=== PATIENT | female | born 1955 ===

== ENCOUNTER 2018-05-15 17:24 | Inpatient (IN) ==
[2018-05-15] MEDS ORDERED: MORPHINE SULFATE 4 MG/1 ML IVP ONE (17:45)
[2018-05-15] MEDS ORDERED: Sodium Chloride 0.9% 1,000 ML PRIMARY IV ONE (17:45)
[2018-05-15] MEDS ORDERED: ONDANSETRON 4 MG/2 ML VIAL IVP ONE (17:45)
[2018-05-15 18:26] LABS: BASOPHILS # (AUTO) 0.04 10*3/UL; BASOPHILS % (AUTO) 0.2 % (0-1); EOSINOPHILS % (AUTO) 0.5 % (0-8); Hematocrit [HCT] 40.4 % (37.0-47.0); Hemoglobin [HGB] 13.6 g/dL (12.0-16.0); LYMPHOCYTES # (AUTO) 2.16 10*3/uL; MEAN CORPUSCULAR HEMOGLOBIN 30.7 PG (27-31); MEAN CORPUSCULAR HGB CONC 33.7 g/dL (33-37); MEAN CORPUSCULAR VOLUME 91.2 FL (81-99); MEAN PLATELET VOLUME 9.5 FL (7.4-12.2); MONOCYTES % (AUTO) 4.6 % (5-15); NEUTROPHILS # (AUTO) 16.23 10*3/UL; NEUTROPHILS % (AUTO) 83.4 % (50-80); RED BLOOD COUNT 4.43 10^6/uL (4.20-5.40)
[2018-05-15 18:37] LABS: BLOOD UREA NITROGEN 10 mg/dL (7-22); BUN/CREATININE RATIO 16.66 (6-20); LIPASE 89 IU/L (23-300); SERUM ALBUMIN 4.4 g/dL (3.5-4.8)
[2018-05-15 18:38] LABS: PLATELET MORPHOLOGY COMMENT NORMAL MORPHOLOGY (NORM); RBC MORPHOLOGY COMMENT SEE COMMENTS (NORM); WBC MORPHOLOGY COMMENT NORMAL MORPHOLOGY (NORM)
[2018-05-15 19:39] LABS: BILIRUBIN,URINE NEGATIVE (NEG); CLARITY,URINE Slightly Cloudy (CLEAR); COLOR,URINE YELLOW (Y); GLUCOSE, URINE (UA) NEGATIVE (NEG); OCCULT BLOOD,URINE SMALL (NEG); PH,URINE 7.5 (5.0-8.5); PROTEIN,URINE NEGATIVE (NEG); UROBILINOGEN,URINE 0.2 EU/dL (0.2)
[2018-05-15 19:42] LABS: BACTERIA,URINE FEW; URINE SAMPLE TYPE CLEAN CATCH URINE; WBC,URINE >100
--- NOTE | 2018-05-15 19:47 | DI ---
EXAM: CT Abdomen and Pelvis With Intravenous Contrast CLINICAL HISTORY: Pain TECHNIQUE: Axial computed tomography images of the abdomen and pelvis with intravenous contrast. COMPARISON: CT abdomen and pelvis dated 04/12/2018 FINDINGS: Lung bases: Unremarkable. No mass. No consolidation. ABDOMEN: Liver: Unremarkable. Gallbladder and bile ducts: Unremarkable. Pancreas: Unremarkable. Spleen: Unremarkable. Adrenals: Unremarkable. Kidneys and ureters: Unremarkable. Stomach and bowel: Short segment of the mid transverse colon which demonstrates marked wall thickening and minimal adjacent stranding. PELVIS: Appendix: No findings to suggest acute appendicitis. Bladder: Unremarkable. Reproductive: Unremarkable as visualized. ABDOMEN and PELVIS: Intraperitoneal space: Unremarkable. Bones/joints: Degenerative changes of the osseous structures. No acute fracture. No dislocation. Soft tissues: Tiny fat-containing umbilical hernia. Vasculature: Vascular calcifications. No abdominal aortic aneurysm. Lymph nodes: Unremarkable. Tubes, lines and devices: Tubal occlusion device noted. Other findings: Lower thorax is unremarkable. IMPRESSION: Short segment of the mid transverse colon which demonstrates marked wall thickening and minimal adjacent stranding. Findings may represent an inflammatory or infectious colitis. Neoplasm is not excluded.
--- NOTE | 2018-05-15 20:22 | PDOC ---
HPI - History of Present Illness History of Present Illness: 63 yo female admited with 3 day hx of abd pain,some diarrhea non bloody .She states this happens to her often.this pm it got worse and she came to ER to be seen Past Medical History Medical History: depression,Gerd Tobacco Use: Current Every Day Smoker In the Past 12 Months, Have Used or Abuse Any of the Following Substance: None Medication / Allergies Home Medications: Home Medications Medication Instructions Recorded Confirmed Type clindamycin 1 % lotion See Rx Instructions TOPICAL 02/13/18 05/15/18 Rx .COMPLEX #60 ml lithium carbonate 300 mg tablet 300 mg PO QDAY #30 tab 02/13/18 05/15/18 Rx lithium carbonate ER 450 mg See Rx Instructions PO .COMPLEX 03/17/18 05/15/18 Rx tablet,extended release #30 tab ranitidine 150 mg tablet See Rx Instructions PO .COMPLEX 03/17/18 05/15/18 Rx #60 tab triamcinolone acetonide 0.1 % 1 applic TOPICAL .COMPLEX #60 ml 03/17/18 05/15/18 Rx lotion Fluocinonide/Emollient Base 60 gm TP DAILY 04/12/18 05/15/18 History [Fluocinonide-E 0.05% Cream] alprazolam 0.25 mg tablet 0.25 mg PO BID PRN #60 tab 04/21/18 05/15/18 Rx atorvastatin 40 mg tablet See Rx Instructions PO .COMPLEX 04/21/18 05/15/18 Rx #90 tab dextroamphetamine ER 10 mg 10 mg PO QDAY #30 cap 04/21/18 05/15/18 Rx capsule,extended release diclofenac 1 % topical gel See Rx Instructions TOPICAL 04/21/18 05/15/18 Rx .COMPLEX #100 g docusate sodium 100 mg capsule 100 mg PO QDAY PRN #30 cap 04/21/18 05/15/18 Rx escitalopram 20 mg tablet 20 mg PO QDAY #30 tab 04/21/18 05/15/18 Rx meloxicam 15 mg tablet 15 mg PO QDAY #30 tab 04/21/18 05/15/18 Rx pantoprazole 40 mg tablet,delayed 40 mg PO QDAY #90 tab 04/21/18 05/15/18 Rx release duloxetine 30 mg capsule,delayed 30 mg PO QDAY 05/01/18 05/15/18 History release trazodone 50 mg tablet 50 mg PO QDAY 05/01/18 05/15/18 History hydrocodone 5 mg-acetaminophen 325 1 tab PO Q12H PRN #60 tab 05/07/18 05/15/18 Rx mg tablet Allergies/Adverse Reactions: Allergies Allergy/AdvReac Type Severity Reaction Status Date / Time No Known Allergies Allergy Verified 05/15/18 16:48 Review of Systems - Review of Systems All Systems: Reviewed & No Additional Complaints Except as Stated - Respiratory Respiratory: DENIES: Negative System Review, Cough, Sputum, Dyspnea At Rest, Dyspnea with Exertion, Pleuritic Pain, Hemoptysis, Wheezing, Other, See HPI - Cardiovascular Cardiovascular: DENIES: Negative System Review, Chest Pain, Edema, Syncope, Palpitations, Orthopnea, Paroxysmal Nocturnal Dyspnea, Other, See HPI - Gastrointestinal Gastrointestinal / Abdominal: REPORTS: Nausea, Diarrhea, Abdominal Pain. DENIES: Bloody Stool - Genitourinary Genitourinary: DENIES: Pain, Burning Exam - Vitals Vital Signs: Vital Signs Temperature 97.9 F Temperature Source Temporal Artery Scan Pulse Rate [Pulse Oximeter] 94 Respiratory Rate 20 Blood Pressure [Left Arm] 136/94 Pulse Ox 93 Oxygen Delivery Method Room Air Height 5 ft Weight 190 lb - General General Appearance: No Acute Distress, Cooperative - Head Head Exam: Normal Inspection, Normocephalic, Atraumatic - Eye Eye Exam: POSITIVE: Normal Appearance, PERRL, EOMI, No Scleral Icterus - ENT ENT Exam: POSITIVE: Normal Exam, Mucous Membranes Moist - Respiratory Respiratory Exam: POSITIVE: Clear to Auscultation - Bilaterally, Breathing Non Labored, Normal To Percussion, Normal to Percussion and Palpation - Cardiovascular Cardiovascular Exam: POSITIVE: RRR, No Murmur, No Clicks, No Gallops, No Rubs, PMI Non-Displaced - GI/Abdominal GI/Abdominal Exam: POSITIVE: Soft, No Hepatomegaly, No Splenomegaly. NEGATIVE: Non Tender, Guarding, Rebound, Rigid Additional GI/Abdominal Exam Details: diffuse pain mild tranverse abdomen - Extremities Extremities Exam: POSITIVE: No Clubbing Present, No Edema Present Results - Labs CBC and BMP: 05/15/18 18:15 05/15/18 18:15 Assessment and Plan - Patient Problems (1) Colitis Current Visit: Yes Status: Acute Comment: invanz iv ,clear liquids, Dr cabrera consulted by ER agrees to see pt in consult, according to pt her wbc are always elevated and has seen a specialist in [place] for it. who said it was normal Code(s): K52.9 - Noninfective gastroenteritis and colitis, unspecified (2) UTI (urinary tract infection) Current Visit: Yes Status: Acute Code(s): N39.0 - Urinary tract infection, site not specified
[2018-05-15] MEDS ORDERED: DOCUSATE 100 MG CAPSULE PO PRN (20:39)
[2018-05-15] MEDS ORDERED: ALPRAZolam Tab 0.25 MG TABLET PO PRN (20:39)
[2018-05-15] MEDS ORDERED: CALCIUM CARBONATE 500 MG (TUMS) CHEWABLE TABLET PO PRN (20:39)
[2018-05-15] MEDS ORDERED: ONDANSETRON 4 MG/2 ML VIAL IVP PRN (20:39)
[2018-05-15] MEDS ORDERED: LIDOCAINE W/ SODIUM BICARB 0.5 ML SYR SUBD PRN (20:39)
[2018-05-15] MEDS ORDERED: ACETAMINOPHEN 325 MG TABLET PO PRN (20:39)
[2018-05-15] MEDS: Ertapenem Inj 1 GM in Sodium Chloride 0.9% 100 ML IV SCH (21:03)
[2018-05-15] MEDS: Lactated Ringers 1,000 ML PRIMARY IV SCH (21:03)
[2018-05-15] MEDS: HEPARIN 5000 UNIT/1 ML SUBCUT SCH (21:15)
--- NOTE | 2018-05-15 21:18 | PDOC ---
Abdomen/Flank HPI - General Chief Complaint: Abdomen Pain Stated Complaint: abdominal pain- sent from [facility] Date Seen by Provider: 05/15/18 Time Seen by Provider: 17:25 Source: POSITIVE: Patient Exam Limitations: POSITIVE: No limitations Nurse's Notes Reviewed & Considered: Yes - History of Present Illness Initial Comments: The patient is a 63-year-old female. She presents to the emergency room complaining of a 2 day history of upper abdominal discomfort. She states she had 2 loose bowel movements around 2 AM this morning. She's had associated nausea but no vomiting she's had an appendectomy and a bilateral tubal ligation in the past. She initially presented to the clinic, who sent her to the emergency room for evaluation. Patient has a history of bipolar disorder, depression and back pain and anxiety. Body Location Affected: REPORTS: Abdomen Timing: REPORTS: Constant, Getting Worse Duration: >24 hours (2 days) Severity: Moderate Quality: REPORTS: Cramping, "Pain" Abdominal Pain Onset Location: REPORTS: RUQ, LUQ, Epigastric Abdominal Pain Radiation: REPORTS: No radiation Context: REPORTS: None Modifying Factors: improves with: Other (2-3 loose bowel movements around 2 AM this morning) Associated Symptoms: REPORTS: Nausea, Diarrhea (2 or 3 early this morning) Similar Symptoms Previously: No Recent Care Received: REPORTS: Denies Any Prior Injuries Related to Current Complaint?: No - Patient Home Medications Home Medications: Home Medications clindamycin 1 % lotion See Rx Instructions TOPICAL .COMPLEX #60 ml 02/13/18 lithium carbonate 300 mg tablet 300 mg PO QDAY #30 tab 02/13/18 lithium carbonate ER 450 mg tablet,extended release See Rx Instructions PO .COMPLEX #30 tab 03/17/18 ranitidine 150 mg tablet See Rx Instructions PO .COMPLEX #60 tab 03/17/18 triamcinolone acetonide 0.1 % lotion 1 applic TOPICAL .COMPLEX #60 ml 03/17/18 Fluocinonide/Emollient Base [Fluocinonide-E 0.05% Cream] 60 gm TP DAILY 04/12/18 alprazolam 0.25 mg tablet 0.25 mg PO BID PRN #60 tab 04/21/18 atorvastatin 40 mg tablet See Rx Instructions PO .COMPLEX #90 tab 04/21/18 dextroamphetamine ER 10 mg capsule,extended release 10 mg PO QDAY #30 cap 1 06/22/17 diclofenac 1 % topical gel See Rx Instructions TOPICAL .COMPLEX #100 g 04/21/18 docusate sodium 100 mg capsule 100 mg PO QDAY PRN #30 cap 04/21/18 escitalopram 20 mg tablet 20 mg PO QDAY #30 tab 04/21/18 meloxicam 15 mg tablet 15 mg PO QDAY #30 tab 04/21/18 pantoprazole 40 mg tablet,delayed release 40 mg PO QDAY #90 tab 04/21/18 duloxetine 30 mg capsule,delayed release 30 mg PO QDAY 05/01/18 trazodone 50 mg tablet 50 mg PO QDAY 05/01/18 hydrocodone 5 mg-acetaminophen 325 mg tablet 1 tab PO Q12H PRN #60 tab 05/07/18 - Patient Allergies Allergies/Adverse Reactions: Allergies Allergy/AdvReac Type Severity Reaction Status Date / Time No Known Allergies Allergy Verified 05/15/18 16:48 Past Medical History - heen HEENT History: Denies History Cardiovascular History: Hyperlipidemia Respiratory History: Denies History Gastrointestinal History: GERD, Other (please comment) Additional Gastrointestinal History: Gastritus Genitourinary History: Denies History Endocrine History: Denies History Musculoskeletal History: Back Pain Neurological History: Denies History Blood Disorders: Denies History Additional Blood Disorders History: Hypercholesterolemia Psychiatric History: Depression, Bi Polar Disorder, Anxiety Disorders, ADD History of Sexually Transmitted Diseases: No Female Reproductive History: Tubal Ligation Obstetrical History: Denies History Cancer History: Denies History In Past Year Been Physically Harmed or Verbally Threatened: No History of MDRO: No Tobacco Use: Current Every Day Smoker Type of alcohol normally used: Hard Liquor In the Past 12 Months, Have Used or Abuse Any Substance: None Previous Surgical History: No Significant Family History: No pertinent family hx Past Medical History Reviewed: Reviewed - No Changes ROS - Limitations ROS Limitations: No Limitations Constitution: REPORTS: Denies Symptoms Cardiovascular: REPORTS: Denies Cardiac Symptoms Respiratory: REPORTS: Denies Resp Symptoms Neurological: REPORTS: Denies Neuro Symptoms Gastrointestinal: REPORTS: Abdominal Pain, Nausea, Diarrhea Endocrine: REPORTS: Denies Symptoms Musculoskeletal: REPORTS: Denies MS Symptoms Genitourinary: REPORTS: Denies Symptoms Eyes: REPORTS: Denies Symptoms ENT: REPORTS: Denies Symptoms Skin: REPORTS: Denies Skin Symptoms Lympathic: REPORTS: Denies Lympathic Symptoms Immunologic: POSITIVE: Denies Symptoms Psychiatric: POSITIVE: Denies Psych Symptoms Abdominal/Flank Pain PE - General Appearance General Appearance: POSITIVE: Alert, Cooperative, No Acute Distress, No Evidence of Trauma - HEENT HEENT: POSITIVE: Head Inspection Nml, Eyes Inspection Nml, Ears Inspection Nml, Nose Inspection Nml, Oral/Dental Inspect. Nml, Pharynx Inspect. Nml, PERRL, EOMI - Neck Neck: POSITIVE: Normal Inspection, No Apparent Injury - Respiratory Respiratory: POSITIVE: No Respiratory Distress, Breath Sounds Normal, Chest Non- Tender - Cardiovascular Cardiovascular: POSITIVE: Regular Rate and Rhythm, Heart Sounds Normal, Equal P ulses, Strong Pulses Peripheral Pulses: Radial (R): 2+, Radial (L): 2+ - Chest Chest: POSITIVE: Non Tender - Abdomen Abdomen: Soft: (All Quadrants), Denies Tenderness: (RLQ), (LLQ), No Splenomegaly : (All Quadrants), No Hepatomegaly: (All Quadrants), No Guarding: (All Quadrants), No Rebound: (All Quadrants), No Palpable Pulse: (All Quadrants), No Palpabale Mass: (All Quadrants), No Distention: (All Quadrants), No Rigidity: (All Quadrants), Tenderness Noted: (RUQ), (LUQ) Additional Abdominal Details: Abdominal examination shows bowel sounds the present. Probably somewhat depressed. Patient complains of pain on palpation over the upper abdomen, especially just left of the epigastrium. No masses, organomegaly or rebound. 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 Findings may represent an inflammatory or infectious colitis. Neoplasm not excluded ". Lab Results Reviewed by Me: Yes CBC and BMP: 05/15/18 18:15 05/15/18 18:15 Lab Results:: Laboratory Results 05/15/18 05/15/18 05/15/18 18:15 18:15 19:30 WBC 19.47 H RBC 4.43 Hgb 13.6 Hct 40.4 MCV 91.2 MCH 30.7 MCHC 33.7 RDW Std Deviation 45.5 RDW Coeff of Bobby 13.9 Plt Count 312 MPV 9.5 Immature Gran % (Auto) 0.2 Neut % (Auto) 83.4 H Lymph % (Auto) 11.1 [place] % (Auto) 4.6 L Eos % (Auto) 0.5 Baso % (Auto) 0.2 Immature Gran # (Auto) 0.04 Neut # (Auto) 16.23 Lymph # (Auto) 2.16 [place] # (Auto) 0.90 H Eos # (Auto) 0.10 Baso # (Auto) 0.04 WBC Morphology Comment Normal morphology Plt Morphology Comment Normal morphology RBC Morph Comment See comments Sodium 138 Potassium 4.3 Chloride 104 Carbon Dioxide 26 Anion Gap 8 BUN 10 Creatinine 0.6 Estimated GFR > 60 BUN/Creatinine Ratio 16.66 Glucose 99 Calculated Osmolality 284.0 Calcium 9.8 Total Bilirubin 0.9 AST 20 ALT 24 Alkaline Phosphatase 120 Total Protein 6.9 Albumin 4.4 Globulin 2.5 Albumin/Globulin Ratio 1.70 Amylase 90 Lipase 89 Ur Collection Type Clean catch urine Urine Color Yellow Urine Clarity Slightly cloudy Urine pH 7.5 Ur Specific [place] 1.015 Urine Protein Negative Urine Glucose (UA) Negative Urine Ketones Negative Urine Occult Blood Small H Urine Nitrate Positive A Urine Bilirubin Negative Urine Urobilinogen 0.2 Ur Leukocyte Esterase Large Urine RBC 3-5 Urine WBC >100 H Ur Squamous Epith Cells None Ur Renal Epithelial Cell None Urine Crystals None Urine Bacteria Few Urine Casts None Urine Mucus None Urine Trichomonas None Urine Yeast None Ur Culture Indicated? Culture set - Patient's Progress Pain Medication Addressed: POSITIVE: Yes (4 mg morphine IV given in ER) School/Work Release Addressed: POSITIVE: Not Applicable Re-examine Time: 20:00 Re-Examine Comment: Results of laboratory and CT scan discussed with patient. Patient received about a liter of normal saline in the emergency room as well as Zofran for nausea and 4 mg of morphine sulfate for pain. Patient states she feels better on discharge. Case discussed with hospitalist on-call, , and surgeon on-call, Dr. Pierson, and patient is admitted for further evaluation and treatment. Status: POSITIVE: Improved, Re-Examined - Consult Consult (If Yes, Name of Consulting MD & Time Called): Yes (Drs. Odell and Dangelo, 1999) Consulting MD will see pt:: POSITIVE: [facility] [place] Admit Counseled: POSITIVE: Patient, RE: Lab Results, RE: Radiology Results, RE: DX, RE: Need for F/U Patient Care Time - Estimated PCT Patient Care Time (In Minutes): 60 Vital Signs - Recent Vital Signs Vital Signs: Vital Signs (Last 8 hours) Temp Pulse Resp BP Pulse Ox 05/15/18 17:30 97.9 F 94 20 136/94 93 - VS Reviewed Vital Signs Reviewed: Yes Discharge Clinical Impression: Abdominal pain, Colitis, UTI (urinary tract infection) Discharge Disposition: Admit to Inpatient Condition: Good Date Decision to Admit to Inpatient: 05/15/18 Time Decision to Admit to Inpatient: 20:00
[2018-05-15] MEDS: traZODone Tab 50 MG TAB PO SCH (21:57)
[2018-05-15] MEDS: LITHIUM CARBONATE 300 MG CAPSULE PO SCH (21:58)
[2018-05-15] MEDS: HYDROcodone-APAP 5 MG -325 MG TABLET PO PRN (21:58)
[2018-05-16] MEDS: MORPHINE SULFATE 2 MG/1 ML IVP PRN ×4 (01:56→19:10)
[2018-05-16] MEDS: HEPARIN 5000 UNIT/1 ML SUBCUT SCH ×3 (04:28→20:41)
[2018-05-16] MEDS: Lactated Ringers 1,000 ML PRIMARY IV SCH ×3 (04:28→20:41)
[2018-05-16] MEDS ORDERED: NICOTINE 21 MG /DAY PATCH TRANSDERM SCH (05:15)
[2018-05-16 05:46] LABS: BASOPHILS # (AUTO) 0.03 10*3/UL; BASOPHILS % (AUTO) 0.2 % (0-1); EOSINOPHILS # (AUTO) 0.29 10*3/UL; EOSINOPHILS % (AUTO) 1.7 % (0-8); Hematocrit [HCT] 37.5 % (37.0-47.0); Hemoglobin [HGB] 12.1 g/dL (12.0-16.0); LYMPHOCYTES # (AUTO) 1.87 10*3/uL; MEAN CORPUSCULAR HEMOGLOBIN 30.2 PG (27-31); MEAN CORPUSCULAR HGB CONC 32.3 g/dL (33-37); MEAN CORPUSCULAR VOLUME 93.5 FL (81-99); MONOCYTES # (AUTO) 0.96 10*3/UL (0.3-0.8); MONOCYTES % (AUTO) 5.5 % (5-15); NEUTROPHILS # (AUTO) 14.29 10*3/UL; NEUTROPHILS % (AUTO) 81.7 % (50-80); RED BLOOD COUNT 4.01 10^6/uL (4.20-5.40)
[2018-05-16 06:12] LABS: BLOOD UREA NITROGEN 9 mg/dL (7-22); SERUM ALBUMIN 3.5 g/dL (3.5-4.8)
[2018-05-16 06:24] LABS: PLATELET MORPHOLOGY COMMENT NORMAL MORPHOLOGY (NORM); RBC MORPHOLOGY COMMENT NORMAL MORPHOLOGY (NORM); WBC MORPHOLOGY COMMENT NORMAL MORPHOLOGY (NORM)
[2018-05-16] MEDS: PANTOPRAZOLE 40 MG TABLET PO SCH (07:32)
[2018-05-16] MEDS ORDERED: traZODone Tab 50 MG TAB PO SCH (09:00)
[2018-05-16] MEDS ORDERED: LITHIUM CARBONATE 300 MG CAPSULE PO SCH ×2 (09:00→21:30)
[2018-05-16] MEDS: HYDROcodone-APAP 5 MG -325 MG TABLET PO PRN ×2 (09:59→21:39)
[2018-05-16] MEDS: ESCITALOPRAM 10 MG TABLET PO SCH (10:00)
[2018-05-16] MEDS: DULOXETINE 30 MG CAPSULE PO SCH (10:00)
[2018-05-16] MEDS: ATORVASTATIN 40 MG TABLET PO SCH (10:00)
[2018-05-16] MEDS: NICOTINE 21 MG /DAY PATCH TRANSDERM SCH (10:01)
--- NOTE | 2018-05-16 10:14 | PDOC(PROG) ---
Interval History: Patient has no complaints today the pain is improved no nausea no vomiting remains on clear liquids Objective : Data - Labs CBC and BMP: 05/16/18 05:11 05/16/18 05:11 Objective : Exam - General General Appearance: Cooperative - Respiratory Respiratory Exam: Clear to Auscultation - Bilaterally, Breathing Non Labored, Normal To Percussion, Normal to Percussion and Palpation - Cardiovascular Cardiovascular Exam: RRR, No Murmur, No Clicks, No Gallops, No Rubs, PMI Non- Displaced - GI/Abdominal Additional GI/Abdominal Exam Details: Transverse colon pain is improved on palpation Assessment and Plan - Patient Problems (1) Colitis Current Visit: Yes Status: Acute Comment: Continue antibiotics Dr. rock Perea on consult will discuss case with him for further management white count is improved Code(s): K52.9 - Noninfective gastroenteritis and colitis, unspecified (2) UTI (urinary tract infection) Current Visit: Yes Status: Acute Comment: Continue antibiotics Code(s): N39.0 - Urinary tract infection, site not specified
--- NOTE | 2018-05-16 10:58 | CONSULT ---
Consult Note - Consult Consult Date: 05/16/18 Reason for Consult: PreOp Consulation : General Surgery Requesting Physician: Dr. Davila Primary Care Provider: Ulises Mcfarland MD - History of Present Illness History of Present Illness: This is 63-year-old female who has developed midepigastric abdominal pain. She states that the pain was a 10 out of 10 last night. Is now down to 6. She has never had pain like this before. She tells me she had a normal colonoscopy 9 months ago. This was done in [place]. She had some diarrhea yesterday but the pain deftly started first. She is nauseated but no vomiting. She denies any fevers or chills. Patient's white count was elevated. 05/15/18 05/15/18 05/16/18 18:15 18:15 05:11 WBC 19.47 H 17.48 H Hgb 13.6 Hct 40.4 Sodium 138 Potassium 4.3 Chloride 104 Anion Gap 8 BUN 10 Creatinine 0.6 Total Bilirubin 0.9 AST 20 ALT 24 Alkaline Phosphatase 120 Total Protein 6.9 Patient does have a UTI. CT scan was read as having a short segment of thickened bowel wall with some Chronic stranding. Question whether this actually represents some pathology are contraction of the colon.. Past Medical History Medical History: depression,Gerd Tobacco Use: Current Every Day Smoker In the Past 12 Months, Have Used or Abuse Any of the Following Substance: None Medication / Allergies Home Medications: Home Medications Medication Instructions Recorded Confirmed Type clindamycin 1 % lotion See Rx Instructions TOPICAL 02/13/18 05/15/18 Rx .COMPLEX #60 ml lithium carbonate 300 mg tablet 300 mg PO QDAY #30 tab 02/13/18 05/15/18 Rx lithium carbonate ER 450 mg See Rx Instructions PO .COMPLEX 03/17/18 05/15/18 Rx tablet,extended release #30 tab ranitidine 150 mg tablet See Rx Instructions PO .COMPLEX 03/17/18 05/15/18 Rx #60 tab triamcinolone acetonide 0.1 % 1 applic TOPICAL .COMPLEX #60 ml 03/17/18 05/15/18 Rx lotion Fluocinonide/Emollient Base 60 gm TP DAILY 04/12/18 05/15/18 History [Fluocinonide-E 0.05% Cream] alprazolam 0.25 mg tablet 0.25 mg PO BID PRN #60 tab 04/21/18 05/15/18 Rx atorvastatin 40 mg tablet See Rx Instructions PO .COMPLEX 04/21/18 05/15/18 Rx #90 tab dextroamphetamine ER 10 mg 10 mg PO QDAY #30 cap 04/21/18 05/15/18 Rx capsule,extended release diclofenac 1 % topical gel See Rx Instructions TOPICAL 04/21/18 05/15/18 Rx .COMPLEX #100 g docusate sodium 100 mg capsule 100 mg PO QDAY PRN #30 cap 04/21/18 05/15/18 Rx escitalopram 20 mg tablet 20 mg PO QDAY #30 tab 04/21/18 05/15/18 Rx meloxicam 15 mg tablet 15 mg PO QDAY #30 tab 04/21/18 05/15/18 Rx pantoprazole 40 mg tablet,delayed 40 mg PO QDAY #90 tab 04/21/18 05/15/18 Rx release duloxetine 30 mg capsule,delayed 30 mg PO QDAY 05/01/18 05/15/18 History release trazodone 50 mg tablet 50 mg PO QDAY 05/01/18 05/15/18 History hydrocodone 5 mg-acetaminophen 325 1 tab PO Q12H PRN #60 tab 05/07/18 05/15/18 Rx mg tablet Allergies/Adverse Reactions: Allergies Allergy/AdvReac Type Severity Reaction Status Date / Time No Known Allergies Allergy Verified 05/15/18 16:48 Results - Labs CBC and BMP: 05/16/18 05:11 05/16/18 05:11 Exam - Vitals Vital Signs: Vital Signs Temperature 97.7 F Temperature Source Temporal Artery Scan Pulse Rate [Pulse Oximeter] 64 Pulse Rate 79 Respiratory Rate 20 Blood Pressure [Left Arm] 111/66 Blood Pressure 114/70 Pulse Ox 95 Oxygen Flow Rate 2 Oxygen Delivery Method Nasal Cannula Height 5 ft Weight 187 lb 2 oz - General General Appearance: No Acute Distress, Cooperative - Eye Eye Exam: POSITIVE: PERRL, EOMI - Cardiovascular Cardiovascular Exam: POSITIVE: RRR - GI/Abdominal GI/Abdominal Exam: POSITIVE: Normal Bowel Sounds, Non Distended Assessment and Plan - Patient Problems (1) Abdominal pain Current Visit: Yes Status: Acute Code(s): R10.9 - Unspecified abdominal pain - Assessment / Plan Additional Assessment/Plan Details: At this point patient is feeling better with one dose antibiotics. Question whether she really has developed colitis are not. Given the fact that patient reports having a normal colonoscopy less than 9 months ago makes it unlikely. Patient also may a perforated diverticulum. Within the [address] scans it's fast and sometimes a Bowel a contraction and looks like inflamed bowel. Also this just may be peptic ulcer disease. I would continue the antibiotic therapy. And also treated with a PPI. Any additional workup can be done as an outpatient.`
[2018-05-16] MEDS: traZODone Tab 50 MG TAB PO SCH (20:40)
[2018-05-16] MEDS: Ertapenem Inj 1 GM in Sodium Chloride 0.9% 100 ML IV SCH (20:40)
[2018-05-16] MEDS: LITHIUM CARBONATE 300 MG CAPSULE PO SCH (20:40)
[2018-05-17] MEDS: MORPHINE SULFATE 2 MG/1 ML IVP PRN (04:50)
[2018-05-17] MEDS: HEPARIN 5000 UNIT/1 ML SUBCUT SCH (04:50)
[2018-05-17] MEDS: Lactated Ringers 1,000 ML PRIMARY IV SCH (04:51)
[2018-05-17 06:49] VITALS: BP 145/74; RESP 18; TEMP 98.2; O2SAT 90
[2018-05-17] MEDS: PANTOPRAZOLE 40 MG TABLET PO SCH (07:27)
[2018-05-17] MEDS: ESCITALOPRAM 10 MG TABLET PO SCH (08:32)
[2018-05-17] MEDS: HYDROcodone-APAP 5 MG -325 MG TABLET PO PRN (08:33)
[2018-05-17] MEDS: ATORVASTATIN 40 MG TABLET PO SCH (08:33)
[2018-05-17] MEDS: DULOXETINE 30 MG CAPSULE PO SCH (08:33)
[2018-05-17] MEDS: NICOTINE 21 MG /DAY PATCH TRANSDERM SCH (08:34)
[2018-05-17 08:46] LABS: BASOPHILS # (AUTO) 0.04 10*3/UL; BASOPHILS % (AUTO) 0.3 % (0-1); EOSINOPHILS # (AUTO) 0.46 10*3/UL; EOSINOPHILS % (AUTO) 3.4 % (0-8); Hematocrit [HCT] 37.5 % (37.0-47.0); Hemoglobin [HGB] 12.1 g/dL (12.0-16.0); MEAN CORPUSCULAR HEMOGLOBIN 30.5 PG (27-31); MEAN CORPUSCULAR HGB CONC 32.3 g/dL (33-37); MEAN CORPUSCULAR VOLUME 94.5 FL (81-99); MEAN PLATELET VOLUME 9.8 FL (7.4-12.2); MONOCYTES # (AUTO) 0.61 10*3/UL (0.3-0.8); MONOCYTES % (AUTO) 4.5 % (5-15); NEUTROPHILS # (AUTO) 10.16 10*3/UL; NEUTROPHILS % (AUTO) 74.1 % (50-80); RED BLOOD COUNT 3.97 10^6/uL (4.20-5.40)
[2018-05-17 08:47] LABS: WBC MORPHOLOGY COMMENT NORMAL MORPHOLOGY (NORM)
[2018-05-17 08:48] LABS: PLATELET MORPHOLOGY COMMENT NORMAL MORPHOLOGY (NORM); RBC MORPHOLOGY COMMENT NORMAL MORPHOLOGY (NORM)
--- NOTE | 2018-05-17 09:52 | DCSUMMARY ---
Hospitalization Summary Hospital Course: Final Discharge Diagnosis: Current Visit Problems Problem Status Onset Code Colitis Acute K52.9 UTI (urinary tract infection) Acute N39.0 Abdominal pain Acute R10.9 Diagnostic Data, Laboratory Data, and Procedures of Signifigance: CBC and BMP 05/17/18 08:30 05/16/18 05:11 Laboratory Results 05/17/18 08:30 WBC 13.70 H RBC 3.97 L Hgb 12.1 Hct 37.5 MCV 94.5 MCH 30.5 MCHC 32.3 L RDW Std Deviation 48.1 RDW Coeff of Bobby 14.3 Plt Count 258 MPV 9.8 Immature Gran % (Auto) 0.2 Neut % (Auto) 74.1 Lymph % (Auto) 17.5 Sumner % (Auto) 4.5 L Eos % (Auto) 3.4 Baso % (Auto) 0.3 Immature Gran # (Auto) 0.03 Neut # (Auto) 10.16 Lymph # (Auto) 2.40 Sumner # (Auto) 0.61 Eos # (Auto) 0.46 Baso # (Auto) 0.04 WBC Morphology Comment Normal morphology Plt Morphology Comment Normal morphology RBC Morph Comment Normal morphology History and Physical pertinent to Admission: Course of Hospitalization: This very nice 63-year-old female comes in with the transverse abdominal pain the patient was put on antibiotics with a clinical diagnosis of colitis and UTI patient's pain now resolved she is tolerating her food surgery was consult did wasn't unsure about the diagnosis of colitis nevertheless this could also represent peptic ulcer disease the patient is on a PPI and pain has disappeared patient is back to her normal self she wants to leave the hospital at present time I will put her on 875 of Augmentin for 8 more days twice a day. I've instructed her to eat probiotics. We did talk about that this could've been may be the symptoms of a UTI or possible colitis but is now in the resolving phase her white count is down to 13,000 from the 19,000 and left shift is normalized n o fever no urinary tract symptoms or upper respiratory tract symptoms. She will follow-up with Dr. rock Perea and Dr. Joya she has an appointment this Friday On the date of discharge, the patient was examined: Gen.: No acute distress, alert, nontoxic Heart: Regular rate and rhythm, no murmurs, clicks, gallops, or rubs Lungs: Clear to auscultation bilaterally, breathing is nonlabored Abdomen/GI: Normal tones on auscultation, soft, nontender, nondistended Musculoskeletal/extremities: No clubbing, cyanosis, or edema Vitals reviewed and are listed below Vital Signs (24 hrs) 05/16/18 11:30 05/16/18 16:24 05/16/18 19:58 Temperature 97.5 F 98.3 F 98.3 F Pulse Rate Pulse Oximeter 63 77 71 Respiratory Rate 18 16 20 Blood Pressure Left Arm 121/68 116/58 115/65 Pulse Ox 91 91 100 05/17/18 00:12 05/17/18 04:47 05/17/18 05:00 Temperature 98.2 F 99.1 F Pulse Rate Pulse Oximeter 77 81 Respiratory Rate 16 16 Blood Pressure Left Arm 135/68 105/59 Pulse Ox 94 94 88 05/17/18 06:49 Temperature 98.2 F Pulse Rate Pulse Oximeter 66 Respiratory Rate 18 Blood Pressure Left Arm 145/74 Pulse Ox 90 Patient was seen with nurse Franco Assessment and Plan: 1. As per discharge assessments above 2. Disposition: Home 3. Condition on discharge, stable and improved. 4. Diet: regular diet 5. Activities: resume normal activities 6. Follow-Up: 1. PCP 2. 7. Medications at the Time of Discharge: Home Medications Medication Instructions Recorded Confirmed Type clindamycin 1 % lotion See Rx Instructions TOPICAL 02/13/18 05/15/18 Rx .COMPLEX #60 ml lithium carbonate 300 mg tablet 300 mg PO QDAY #30 tab 02/13/18 05/15/18 Rx lithium carbonate ER 450 mg See Rx Instructions PO .COMPLEX 03/17/18 05/15/18 Rx tablet,extended release #30 tab ranitidine 150 mg tablet See Rx Instructions PO .COMPLEX 03/17/18 05/15/18 Rx #60 tab triamcinolone acetonide 0.1 % 1 applic TOPICAL .COMPLEX #60 ml 03/17/18 05/15/18 Rx lotion Fluocinonide/Emollient Base 60 gm TP DAILY 04/12/18 05/15/18 History [Fluocinonide-E 0.05% Cream] alprazolam 0.25 mg tablet 0.25 mg PO BID PRN #60 tab 04/21/18 05/15/18 Rx atorvastatin 40 mg tablet See Rx Instructions PO .COMPLEX 04/21/18 05/15/18 Rx #90 tab dextroamphetamine ER 10 mg 10 mg PO QDAY #30 cap 04/21/18 05/15/18 Rx capsule,extended release diclofenac 1 % topical gel See Rx Instructions TOPICAL 04/21/18 05/15/18 Rx .COMPLEX #100 g docusate sodium 100 mg capsule 100 mg PO QDAY PRN #30 cap 04/21/18 05/15/18 Rx escitalopram 20 mg tablet 20 mg PO QDAY #30 tab 04/21/18 05/15/18 Rx meloxicam 15 mg tablet 15 mg PO QDAY #30 tab 04/21/18 05/15/18 Rx pantoprazole 40 mg tablet,delayed 40 mg PO QDAY #90 tab 04/21/18 05/15/18 Rx release duloxetine 30 mg capsule,delayed 30 mg PO QDAY 05/01/18 05/15/18 History release trazodone 50 mg tablet 50 mg PO QDAY 05/01/18 05/15/18 History hydrocodone 5 mg-acetaminophen 325 1 tab PO Q12H PRN #60 tab 05/07/18 05/15/18 Rx mg tablet Amoxicill/Clav 875/125mg 1 tab PO BID #16 tab 05/17/18 Rx [Augmentin 875/125mg] 8. Time, care, counseling and coordination of care for this discharge is greater than 30 minutes. Exam - Vitals Vital Signs: Vital Signs Temperature 98.2 F Temperature Source Temporal Artery Scan Pulse Rate [Pulse Oximeter] 66 Pulse Rate 79 Respiratory Rate 18 Blood Pressure [Left Arm] 145/74 Blood Pressure 114/70 Pulse Ox 90 Oxygen Flow Rate 2 Oxygen Delivery Method Room Air Height 5 ft Weight 188 lb 12.8 oz Patient Problems - Patient Problem List (1) Colitis Current Visit: Yes Status: Acute Code(s): K52.9 - Noninfective gastroenteritis and colitis, unspecified Category: Medical (2) UTI (urinary tract infection) Current Visit: Yes Status: Acute Code(s): N39.0 - Urinary tract infection, site not specified Category: Medical
[2018-05-17] MEDS ORDERED: Amoxicill/Clav 875/125mg Tab 1 TAB TAB PO SCH (21:00)
== END 2018-05-17 11:12 | disposition home or self-care (01) | DRG 392 ==
LOC: ER 17:24 → MED/SURG 20:08
PROVIDERS: ADMIT Internal Medicine; ATTEND Internal Medicine